=== PATIENT | female | born 1930 | race Caucasian/White ===

== ENCOUNTER 2022-05-15 18:22 | Inpatient (IN) | payer OTHER ==
[~2022-05-15] VITALS: Ht 157.5 cm; Wt 59.0 kg
--- NOTE | 2022-05-15 18:25 | NUR ---
JOAN ALS TO ER BED 4
[2022-05-15 18:32] VITALS: BP 113/78
[2022-05-15] MEDS ORDERED: IPRATROPIUM 0.02% 0.5 MG/2.5 ML NEBU INH ONE (18:35)
[2022-05-15] MEDS ORDERED: ALBUTEROL 0.083% 2.5 MG/3 ML NEBU INH ONE ×2 (18:35→20:45)
[2022-05-15] MEDS ORDERED: methylPREDNISolone SS 125 MG/2 ML VIAL IVP ONE (18:35)
[2022-05-15 19:07] LABS: BASOPHILS % (AUTO) 0.4 % (0.0-2.0); EOSINOPHILS % (AUTO) 0.1 % (0.0-4.0); HEMOGLOBIN 8.7 g/dL (12.0-16.0); LYMPHOCYTES # (AUTO) 0.7 K/uL (2.5-16.5); LYMPHOCYTES % (AUTO) 15.4 % (20.5-51.1); MEAN CORPUSCULAR HEMOGLOBIN 38 pg (27-31); MEAN CORPUSCULAR HGB CONC 34 g/dL (33-37); MEAN CORPUSCULAR VOLUME 112.8 fL (80-94); MONOCYTES # (AUTO) 0.5 K/uL (0.8-1.0); MONOCYTES % (AUTO) 12.5 % (1.7-9.3); NEUTROPHILS # (AUTO) 3.1 K/uL (1.8-7.7); NEUTROPHILS % (AUTO) 71.6 % (42.2-75.2); PLATELET COUNT (AUTO) 442 K/uL (140-450); RED BLOOD CELL COUNT(AUTO) 2.31 MIL/uL (4.20-5.40); RED CELL DISTRIBUTION WIDTH 16.6 % (11.6-13.7); WHITE BLOOD COUNT (AUTO) 4.4 K/uL (4.8-10.8)
[2022-05-15 19:21] LABS: ALBUMIN 3.2 g/dL (3.4-5.0); ANION GAP 5.1 (8-16); ASPARTATE AMINOTRANSFERASE 26 U/L (15-37); CHLORIDE 98 mmol/L (98-107); CREATININE 0.7 mg/dL (0.6-1.3); GLUCOSE 110 mg/dL (74-106); POTASSIUM 4.9 mmol/L (3.5-5.1); SODIUM SERUM 140 mmol/L (136-145); TOTAL BILIRUBIN 0.3 mg/dL (0.0-1.0); UREA NITROGEN, BLOOD 28 mg/dL (7-18)
[2022-05-15 19:24] LABS: CARBON DIOXIDE 41.8 mmol/L (21-32)
--- NOTE | 2022-05-15 19:25 | NUR ---
Note per in ED - 05/15/22 at 1933 by [id number] Patient resting in bed A/Ox4, chest rise and fall symmetrical, no c/o pain or s/s of distress.
--- NOTE | 2022-05-15 19:26 | NUR ---
Patient resting in bed A/Ox2, chest rise and fall symmetrical, no c/o pain or s/s of distress
[2022-05-15] MEDS ORDERED: FUROSEMIDE 20 MG/2 ML VIAL IVP ONE (20:05)
[2022-05-15] MEDS ORDERED: cefTRIAXone 1,000 MG VIAL ONE (20:55)
--- NOTE | 2022-05-15 21:00 | NUR ---
Patient's son stated patient "has no known allergies."
--- NOTE | 2022-05-15 21:41 | NUR ---
Patient resting in bed A/Ox2, chest rise and fall symmetrical, no c/o pain or s/s of distress
--- NOTE | 2022-05-15 23:00 | NUR ---
Patient resting in bed A/Ox2, chest rise and fall symmetrical, no c/o pain or s/s of distress
[2022-05-15 23:04] VITALS: BP 132/55
--- NOTE | 2022-05-15 23:28 | NUR ---
2200 PATIENTS TIDAL VOLUMES WERE LOW ON BIPAP. INCREASED IPAP TO 12 AND I TIME TO .90 PTS VT IMPROVED
--- NOTE | 2022-05-15 23:31 | NUR ---
2044 PLACED PT ON BIPAP DUE TO HIGH CO2. IPAP 10 EPAP 5 AND RR 16. FIO2 30% SIZE MEDIUM MASK
[2022-05-15] MEDS ORDERED: SYN.05 PO (23:34)
[2022-05-15] MEDS ORDERED: FURO-572 PO (23:34)
--- NOTE | 2022-05-16 00:12 | NUR ---
Patient will be admitted to care of Dr Estes. Admited to telemetry. Will go to room 121A. Belongings list completed. Report to Dinorah CONTRERAS. Dinorah CONTRERAS verbalized understanding of report, no further questions.
--- NOTE | 2022-05-16 00:12 | NUR ---
Patient resting in bed A/Ox2, chest rise and fall symmetrical, no c/o pain or s/s of distress
--- NOTE | 2022-05-16 00:25 | NUR ---
RECEIVED PT ADMISSION FROM ER TO [facility]. ADMITTED WITH CHIEF COMPLAINT OF DIFFICULTY OF BREATHING AND DIAGNOSIS OF COPD EXACERBATION. PT WITH HISTORY OF DEMENTIA, COPD, DYSPHAGIA, HTN, HYPOTHYROIDISM AND A-FIB. PT IS BED REST, NO ALLERGY AND IS DNR. PT IS ALERT AND ORIENTED X1-2, PT NOTED TIRED AND SLEEPY, DOES NOT RESPONDS ON STIMULI. PT ADMITTED WITH RENAL DIET. PT IS INCONTINENT. IV SITE IS ON LEFT AC 24G, INTACT AND PATENT. SACRAL WOUND (DRY WOUND) PRESENT ON SACRAL AREA. PT CAME IN WITH BIPAP.
--- NOTE | 2022-05-16 00:37 | NUR ---
0015 TRANSFERRED SAME SETTING PT TO ROOM 121 A ON BIPAP SAME SETTINGS
--- NOTE | 2022-05-16 02:35 | NUR ---
PT AWAKE OPEN EYES AND SMILE, ATTEMPT TO REMOVE HER CLOTHING BUT FEW MINUTES AFTER BACK TO SLEEP.
[2022-05-16 04:00] VITALS: BP 108/52
--- NOTE | 2022-05-16 04:00 | NUR ---
PT IS ASLEEP WITH BIPAP ON.
--- NOTE | 2022-05-16 05:30 | NUR ---
PT IS AWAKE AND ASKED ABOUT BIPAP THAT SHE IS USING.
[2022-05-16 07:11] LABS: CARBON DIOXIDE 40.4 mmol/L (21-32); CHLORIDE 97 mmol/L (98-107); CREATININE 0.8 mg/dL (0.6-1.3); GLUCOSE 128 mg/dL (74-106); POTASSIUM 4.4 mmol/L (3.5-5.1); UREA NITROGEN, BLOOD 26 mg/dL (7-18)
[2022-05-16 07:55] LABS: SODIUM SERUM 141 mmol/L (136-145)
[2022-05-16 08:00] VITALS: BP 122/53
--- NOTE | 2022-05-16 08:14 | NUR ---
0735: RECEIVED PT FROM LIS CONTRERAS. PT RESTING IN BED AWAKE. NO C/O PAIN OR SOB. NO ACUTE DISTRESS NOTED AT THIS TIME. [id number].
--- NOTE | 2022-05-16 08:16 | NUR ---
0735: PREVIOUS ENTRY ON WRONG PT. PT RESTING IN BED ON BI-PAP. NO GUARDING OR GRIMACING . NO ACUTE DISTRESS NOTED AT THIS TIME. [id number].
[2022-05-16 08:55] LABS: BASOPHILS % (AUTO) 0.2 % (0.0-2.0); HEMATOCRIT 26.8 % (36-48); HEMOGLOBIN 8.6 g/dL (12.0-16.0); LYMPHOCYTES # (AUTO) 0.3 K/uL (2.5-16.5); LYMPHOCYTES % (AUTO) 8.4 % (20.5-51.1); MEAN CORPUSCULAR HEMOGLOBIN 36 pg (27-31); MEAN CORPUSCULAR HGB CONC 32 g/dL (33-37); MEAN CORPUSCULAR VOLUME 113.4 fL (80-94); MONOCYTES # (AUTO) 0.2 K/uL (0.8-1.0); MONOCYTES % (AUTO) 4.5 % (1.7-9.3); NEUTROPHILS # (AUTO) 3.4 K/uL (1.8-7.7); NEUTROPHILS % (AUTO) 86.9 % (42.2-75.2); PLATELET COUNT (AUTO) 411 K/uL (140-450); RED BLOOD CELL COUNT(AUTO) 2.36 MIL/uL (4.20-5.40); RED CELL DISTRIBUTION WIDTH 16.4 % (11.6-13.7); WHITE BLOOD COUNT (AUTO) 3.9 K/uL (4.8-10.8)
--- NOTE | 2022-05-16 09:20 | NUR ---
PATIENT HAS BEEN SCREENED AND CATEGORIZED HIGH NUTRITION RISK. PATIENT WILL BE SEEN WITHIN 1-2 DAYS OF ADMISSION. FNS CONSULT RECEIVED FOR SAY 12 OR LOWER ON 05/16/22. REVIEWED BY MEMO BARBA RD
--- NOTE | 2022-05-16 10:00 | NUR ---
Dr Flores rounded on pt gave verbal order for abg. To see if pt can come off bipap. Will continue to monitor.
--- NOTE | 2022-05-16 10:25 | NUR ---
ABG RESULTS GIVEN TO DR REED. WANTS TO KEEP PT ON BIPAP TODAY AND NIGHT FOLLOWED BY AN ABG 4/12 AM. FAMILY AT BEDSIDE WAS INFORMED OF PLAN OF CARE MOVING FORWARD. BREATHING TX WERE ALSO ORDERED FROM BRIANNA. [id number] +Q2 PRN SOB. WILL CONTINUE TO MONITOR. RN AWARE OF ORDERS AND PLAN OF CARE.
[2022-05-16] MEDS ORDERED: ALBUTEROL SULFATE/IPRATROPIU 3 ML SOL IH PRN (10:40)
[2022-05-16] MEDS: FUROSEMIDE 20 MG/2 ML VIAL IVP SCH ×2 (10:40→16:30)
--- NOTE | 2022-05-16 11:30 | NUR ---
DC PLANNING ASSESSMENT COMPLETE PLEASE REFER TO ASSESSMENT FOR ADDITIONAL DETAILS DELANO REQUESTING AN ALTERNATIVE SNF BE FOUND HE CURRENTLY IS UNHAPPY WITH LEVEL OF CARE PT IS RECEIVING AT [facility]. PT REQUESTING REFERRAL PACKET BE SENT TO [facility]. SPOKE TO DELANO ABOUT HOW PLACEMENT IS TYPICALLY ARRANGED AND THE COMPLEXITIES OF PLACEMENT, HOWEVER, NOTIFIED DELANO THAT SW WOULD ENDORSE TO CM. DELANO ACKNOWLEDGED AND IS AWARE OF BARRIERS. SW ENDORSED TO CM. Addendum: 05/17/22 at 0909 by Rubina FELIX Amended: Links added.
[2022-05-16 12:00] VITALS: BP 95/62
[2022-05-16] MEDS: methylPREDNISolone SS 40 MG/ML VIAL IVP SCH ×2 (13:00→21:39)
--- NOTE | 2022-05-16 13:25 | NUR ---
RT RECEIVED A CALL FROM RN PT WAS TAKING HER BIPAP OFF AND AGITATED. RT GOT AN ABG AND CALL DR REED WITH RESULTS. KACY STATED PT IS OK TO BE OFF BIPAP AND TO PLACE HER BACK ON FOR NOC. NO DISTRESS NOTED FROM PT. WILL CONTINUE TO MONITOR. PT IS ON 2L NC SATING 98% HR 73.
[2022-05-16] MEDS: ALBUTEROL SULFATE/IPRATROPIU 3 ML SOL IH SCH ×4 (14:31→23:00)
--- NOTE | 2022-05-16 15:29 | NUR ---
DC PLANNING 89 YRS OLD FEMALE PATIENT WAS ADMITTED FROM [facility] WITH A DX OF COPD EXACERBATION . PATIENT HAS A HX OF DEMENTIA, COPD, A-FIB, HYPOTHYROIDISM AND DYSPHAGIA. CXR SHOWED RT PLEURAL INFUSION. RAPID COVID TEST NEGATIVE. ADMINISTERED IV LASIX AND CONTINUED HOME MEDS. CONSULTED WITH PULCHANTAL. DC PLAN TO RETURN TO [facility]. CM TO FOLLOW Addendum: 05/17/22 at 1710 by Roxana Gómez RN DC PLANNING: SEEN BY TIMBO SANDHU ORDERED TO CONTINUE LASIX IV FOR FLUID OVERLOAD . REVIEWED CT SCAN NONSPECIFIC FINDINGS. SPOKE WITH SON AND SON WANTS TO CONSIDER HOSPICE. CM TO FOLLOW
[2022-05-16 16:00] VITALS: BP 110/84
--- NOTE | 2022-05-16 16:41 | NUR ---
05/16/22 RD INITIAL ASSESSMENT COMPLETED PLEASE REFER TO NUTRITION ASSESSMENT UNDER CARE ACTIVITY FOR ESTIMATED NUTRITIONAL NEEDS. 1. RECOMMEND RENAL, MECHANICAL SOFT DIET TOLERATED 2. RECOMMENDED ENSURE 1/DAY FOR WOUND HEALING -PROVIDES 350 KCAL AND [address] TO FOLLOW-UP 3-5 DAYS, MODERATE RISK REVIEWED BY MEMO BARBA RD
--- NOTE | 2022-05-16 17:45 | NUR ---
CHECKED ON PT SHE IS AWAKE AND ALERT WITH SON AT BEDSIDE. NO DISTRESS NOTED. HR 67 SPO2 95% ON 2L NC. EXPLAINED TO SON THAT TO NIGHT WE WILL TRY TO PLACE BIPAP ON AT NIGHT TONIGHT IF HE CAN ENCOURAGE HER TO WEAR IT. SON AGREED AND WILL TALK TO PT BEFORE HE LEAVES.
--- NOTE | 2022-05-16 19:07 | NUR ---
0800: RECEIVED PT FROM TIANA CONTRERAS. PT RESTING IN BED. NO GUARDING OR GRIMACING. NO ACUTE DISTRESS NOTED AT THIS TIME. MNURMV2.
--- NOTE | 2022-05-16 19:30 | NUR ---
RECEIVED REPORT FROM DAY SHIFT NURSE SENIA FOR CONTINUITY OF CARE. PATIENT IS A&O X3. PATIENT IS ON 2L NC, BREATHING IS NORMAL WITH SYMMETRICAL RISE AND FALL OF CHEST. IV IS A 24G LFA, AND A 20G IN THE R WRIST; NO FLUIDS RUNNING AT THIS TIME (SALINE LOCKED). PATIENT ALSO HAS A 20G LAC THAT BECAME INFILTRATED EARLIER IN THE DAY. PATIENT IS SITTING IN SEMI-FOWLERS POSITION, RECEIVING A BREATHING TREATMENT FROM RESPIRATORY THERAPY. FAMILY MEMBER IS AT PATIENT'S SIDE. BED IS IN LOWEST POSITION, WHEELS LOCKED CALL LIGHT IN PLACE. WILL CONTINUE TO OBSERVE PATIENT.
--- NOTE | 2022-05-16 19:32 | NUR ---
193: REPORTED OFF TO CUONG CONTRERAS. PT RESTING IN BED, VISITING WITH FAMILY. NO C/O PAIN OR SOB. NO ACUTE DISTRESS NOTED AT THIS TIME. MNURMV2.
[2022-05-16 20:00] VITALS: BP 110/50
--- NOTE | 2022-05-16 21:09 | NUR ---
RT NOTES TRIED TO PLACE PT ON BIPAP BEFORE DAUGHTER LEFT FOR THE NIGHT BUT PT REFUSED AND DIDNT WANT IT ON. NO DISTRESS WAS NOTED FROM THE PT. EXPLAINED TO THE DAUGHTER I CANT MAKE PT WEAR IT BUT WE CAN TRY LATER WHEN SHE GETS TIRED. DAUGHTER UNDERSTANDS. WILL CONTINUE TO MONITOR PT
[2022-05-17] VITALS: BP 108/47
[2022-05-17] MEDS: ALBUTEROL SULFATE/IPRATROPIU 3 ML SOL IH SCH ×6 (03:00→23:46)
[2022-05-17 04:00] VITALS: BP 100/46
[2022-05-17] MEDS: methylPREDNISolone SS 40 MG/ML VIAL IVP SCH ×3 (04:37→20:23)
[2022-05-17] MEDS: LEVOTHYROXINE 0.05 MG TAB PO SCH (07:06)
--- NOTE | 2022-05-17 07:08 | NUR ---
PATIENT SLEPT THROUGHOUT THE NIGHT. PATIENT WAS CHANGED WITH THE ASSISTANCE OF JENIFFER CROCKER. NEW BANDAGE WAS APPLIED TO COCCYX. PHOTO WAS TAKEN OF LEFT HIP CLAUDIA AND BRUISE ON LEFT INNER THIGH. 0630 PO MEDICATION ADMINISTERED WITHOUT ANY DIFFICULTY OF SWALLOWING. WILL ENDORSE CARE TO DAY SHIFT.
[2022-05-17] MEDS: FUROSEMIDE 20 MG/2 ML VIAL IVP SCH ×2 (07:30→16:29)
--- NOTE | 2022-05-17 07:35 | NUR ---
ENDORSED TO DAY SHIFT NURSE SYLVIA FOR CONTINUITY OF CARE. PATIENT IS STABLE.
--- NOTE | 2022-05-17 07:36 | NUR ---
RECEIVED REPORT FROM ACID CONDITIONING WORKER. PT IN BED WITH HOB ELEVATED. AOX2, ORIENTED TO SELF AND PLACE. VERBAL, VIETNAMESE SPEAKING. NO C/O PAIN, NO SOB ON 2L O2. WITH PERIPHERAL IVs SALINE LOCKED.
[2022-05-17 08:00] VITALS: BP 125/67
[2022-05-17] MEDS ORDERED: FUROSEMIDE 20 MG TAB PO SCH (09:00)
--- NOTE | 2022-05-17 11:00 | NUR ---
SHMUEL CARE DONE. TURNED AND REPOSITIONED
[2022-05-17 12:00] VITALS: BP 111/71
--- NOTE | 2022-05-17 13:53 | NUR ---
WOUND CARE NOTE: PT IS AWAKE ,CONFUSE, WITH O2 NC, NO SOB. PT IS INCONTINENT OF BLADDER, NO BM.PT. ADMITTED WITH SACRALCOCCYX PRESSURE INJURY STAGE 3 2X3X0.2CM WOUND BED 100% RED GRANULATION TISSUE, MOIST, NO ODOR, SHMUEL-WOUND SKIN PEELING WITH NON-BLANCHABLE REDNESS,ENTIRE AFFECTED AREA 4X4CM FURTHER DAMAGE INDICATED. LEFT HIP ORIF ON APRIL, WOUND SITE DRY, CLEAN. PT. WITH LOW SAY SCALE AT HIGH RISK, CONTINUE TO FOLLOW PRESSURE INJURY PREVENTION INTERVENTIONS. POC DISCUSSED WITH PRIMARY RN SYLVIA. RECOMMENDATIONS: -REMOVE LEFT CLAUDIA, AREA HEALED. -APPLY TO ALL LIMBS, TRUNK OF BODY , PERINEUM BID AND RESIN COATER -CLEAN WITH NS, PAT DRY, APPLY THERAHONEY GEL TO SACRALCOCCYX WOUND BED AND COVER WITH DRY DRESSING QD AND PRN IF SOILING -POSITIONING: TURN AND REPOSITION PATIENT Q 2H OR SOONER USE PILLOWS TO KEEP BONY PROMINENCES FROM DIRECT CONTACT WITH SURFACES USE REPOSITIONING WEDGES TO PROVIDE 30-DEGREE ANGLE FOR SIDE LYING POSITIONS OFFLOADING OR FOAM DRESSING TO ALL TUBING TO PREVENT MEDICAL DEVICES RELATED PRESSURE INJURY -RE-EVALUATING AND MANAGING INCONTINENCE MONITOR SKIN CONDITION DURING POSITION CHANGE DO NOT MASSAGE REDNESS, BONY PROMINENCES FREQUENT SHMUEL-CARE AND PROVIDE BARRIER CREAMS PRN IF SOILING MOISTURE CONTROL BY OFFER BED WATTS/URINAL /ABSORBENT PAD TO WICK AND HOLD MOISTURE KEEP SKIN DRY AND PROTECT FROM FRICTION -MANAGE FRICTION/SHEAR/MOBILITY KEEP HOB AT THE LOWEST LEVEL OF ELEVATION NO MORE THAN 30 DEGREE UNLESS OTHERWISE CONTRAINDICATED USE LIFT SHEET OR TRANSFER DEVICE TO MOVE PATIENT AND PREVENT LATERAL SHEER. PROTECT HEELS, ELBOWS BONY PROMINENCES WITH SKIN BERRIES OR FOAM DRESSING IF EXPOSED TO FRICTION OFFLOAD BILATERAL HEELS BY PLACING PILLOWS UNDER CALVES AT ALL TIMES, UNLESS OTHERWISE CONTRAINDICATED -PRESSURE REDISTRIBUTION SURFACE THERAPY CECILY ISOFLEX MATTRESS -NUTRITION: PLEASE FOLLOW RD RECOMMENDATIONS AND OFFER NUTRITION SUPPLEMENTS IF ORDERED. PLEASE CONTACT WOUND CARE NURSE FOR ANY QUESTION AND CHANGE OF WOUND CONDITION.
--- NOTE | 2022-05-17 15:50 | NUR ---
LEFT HIP CLAUDIA REMOVED ORDERED. FABIOONEY APPLIED TO LEFT BUTTOCK WOUND
[2022-05-17 16:00] VITALS: BP 121/58
[2022-05-17] MEDS: THERAHONEY GEL 42.5 GM TP SCH (16:29)
--- NOTE | 2022-05-17 19:30 | NUR ---
RECEIVED REPORT FROM DAY SHIFT NURSE SYLVIA FOR CONTINUITY OF CARE. PATIENT IS A&O X1-2, CONFUSED. PATIENT IS ON 3L NC, BREATHING IS NORMAL WITH SYMMETRICAL RISE AND FALL OF CHEST. IV IS A 24G LFA, AND A 20G IN THE R WRIST; NO FLUIDS RUNNING AT THIS TIME (SALINE LOCKED). PATIENT IS SITTING IN SEMI-FOWLERS POSITION, RECEIVING A BREATHING TREATMENT FROM RESPIRATORY THERAPY. FAMILY MEMBER IS AT PATIENT'S SIDE. BED IS IN LOWEST POSITION, WHEELS LOCKED CALL LIGHT IN PLACE. WILL CONTINUE TO OBSERVE PATIENT.
[2022-05-17 20:00] VITALS: BP 109/49
--- NOTE | 2022-05-17 22:04 | NUR ---
PATIENT HAD VOIDED WITH NO BM. PATIENT WAS CLEANED AND CHANGED. NEW COVERS WERE PLACED ON PATIENT. PATIENT IS VERY CONFUSED. WILL CONTINUE TO OBSERVE PATIENT.
[2022-05-18] VITALS: BP 121/55
[2022-05-18] MEDS: HYDRAGUARD CREAM TP SCH ×2 (01:37→13:00)
[2022-05-18] MEDS: ALBUTEROL SULFATE/IPRATROPIU 3 ML SOL IH SCH ×6 (03:37→19:23)
[2022-05-18 04:00] VITALS: BP 153/77
[2022-05-18] MEDS: methylPREDNISolone SS 40 MG/ML VIAL IVP SCH ×2 (05:55→14:00)
[2022-05-18] MEDS: LEVOTHYROXINE 0.05 MG TAB PO SCH (05:55)
--- NOTE | 2022-05-18 06:11 | NUR ---
PATIENT SLEPT THROUGHOUT MOST OF THE NIGHT. PATIENT HAD A BREATHING TREATMENT AT 0337. AT 0400 PATIENT WAS FOUND ON THE FLOOR NEXT TO HER BED. PATIENT WAS CONFUSED ASKING WHERE SHE WAS. ASSESSED PATIENT; PATIENT DID NOT APPEAR TO HAVE ANY NEW WOUNDS. ASSISTED PATIENT BACK TO BED WITH THE ASSISTANCE OF DIANE GARIBAY AND DIANE MOURA. PATIENT WAS PLACED BACK INTO BED AND COVERED BACK UP. ASKED PATIENT WHAT HAPPENED; PATIENT RESPONDED SAYING I DON'T KNOW WHAT HAPPENED. PATIENT IS VERY CONFUSED. UNABLE TO SET BED ALARM ON PATIENT'S BED; BED KEEPS STATING "TOO LITTLE WEIGHT". SITTING OUTSIDE PATIENT'S ROOM. PATIENT IS SLEEPING. MD WAS NOTIFIED AROUND 0450; FAMILY MEMBER [DANN ARELLANO (DAUGHTER)] WAS NOTIFIED AT 0610. EXPLAINED TO DAUGHTER THAT PATIENT WAS FOUND ON FLOOR NEXT TO BED AND APPEARED CONFUSED. ALSO EXPLAINED THAT PATIENT DID NOT APPEAR TO HAVE ANY VISIBLE NEW WOUNDS AND ONCE SHE WAS BACK IN BED, STARTED TO GO BACK TO SLEEP. DAUGHTER SAID OKAY, AND THANKED ME FOR CALLING HER. STILL PENDING MD RESPONSE.
--- NOTE | 2022-05-18 06:27 | NUR ---
DR. SIMPSON MESSAGED AT [address] W/O CONTRAST; AND X-RAY OF BILATERAL HIP AND KNEE. PLACED ORDER INTO SYSTEM. PATIENT IS LYING IN BED SLEEPING.
--- NOTE | 2022-05-18 06:59 | NUR ---
PATIENT TAKEN BY ARLEN FROM RADIOLOGY AT [address] SCAN OF HEAD W/O CONTRAST AND BILATERAL X-RAY OF HIP AND KNEE. WILL ENDORSE TO DAY SHIFT NURSE OF PATIENT BEING OFF UNIT.
--- NOTE | 2022-05-18 07:39 | NUR ---
PATIENT ARRIVED BACK TO UNIT AT 0730 FROM RADIOLOGY. WAS ENDORSING PATIENT TO DAY SHIFT NURSE ADZE AT TIME OF PATIENT'S RETURN. INFORMED DAY SHIFT NURSE THAT LASIX 0730 NOT ADMINISTERED. DAY SHIFT NURSE STATED NOT TO WORRY ABOUT IT, SHE WOULD TAKE CARE OF IT.
--- NOTE | 2022-05-18 07:40 | NUR ---
ENDORSED TO DAY SHIFT NURSE ADZE FOR CONTINUITY OF CARE. PATIENT IS STABLE.
[2022-05-18 08:00] VITALS: BP 145/47
--- NOTE | 2022-05-18 08:00 | NUR ---
patient came back from radiology. asleep, easily awakened to verbal stimuli. not in any form of distress. shift assessment done and documented. will continue to monitor.
[2022-05-18] MEDS: FUROSEMIDE 20 MG/2 ML VIAL IVP SCH ×2 (08:30→16:30)
--- NOTE | 2022-05-18 11:30 | NUR ---
PT IS STILL SLEEPING RN STATED PT DID NOT GET GOOD SLEEP LQST NIGHT DUE TO HER FALL AND COMING BACK FORM CT. PT FIRST TX WAS HELD WELL. NO DISTRESS NOTE SON IS AT BEDSIDE AND AGREES TO LET PT SLEEP. WILL CONTINUE TO MONITOR.
[2022-05-18 12:00] VITALS: BP 145/47
--- NOTE | 2022-05-18 12:30 | NUR ---
PHYSICAL THERAPY NOTE: ATTEMPTED TO SEE PATIENT FOR PHYSICAL THERAPY EVALUATION HOWEVER PATIENT HAS CONFIRMED NONDISPLACED FX ALONG LEFT INFERIOR LESSER TROCHANTER OF 05/18 11:30AM; REQUIRE ORTHO CLEARANCE AND WB STATUS TO PROCEED WITH OOB ACTIVITY. FALL INTERNSHIP AND RN AWARE. Addendum: 05/18/22 at 1307 by Lizzette Gallego PT HOLD EVALUATION UNTIL CLEARED BY ORTHO. WILL FOLLOW UP TOMORROW
--- NOTE | 2022-05-18 12:57 | NUR ---
RECEIVED [facility] FOR [facility] , AND SPOKE WITH JEFF WHO INFORMED ME PATIENT WAS ACCEPTED AND A NURSE WILL BE OUT BEFORE 1400 TO EVALUATE THE PT WHILE SON IS PRESENT AND THEY WILL GO FROM THE Addendum: 05/18/22 at 1604 by Roxana Gómez RN DC PLANNING: CM SPOKE WITH PT'S SON TONNY STATED HE DISCUSSED WITH PT'S PCP AND RECOMMENDED HOSPICE AND [facility] CONTRACTED WITH PCP. CM CONTACTED [facility] SPOKE WITH JEFF STATED WILL SEND THE NURSE AND THE PLAN IS TO GO BACK TO [facility] WITH HOSPICE TOMORROW 05/17/22. CM TO FOLLOW
[2022-05-18] MEDS: THERAHONEY GEL 42.5 GM TP SCH (13:00)
--- NOTE | 2022-05-18 14:10 | NUR ---
son at bedside. called Dr. Jasso and notified that patient family is at bedside and that MD needs to notify family regarding x-ray results. per Dr. Jasso he will speak with the family today or tomorrow. patient is resting comfortably in bed with no distress noted.
[2022-05-18 16:00] VITALS: BP 129/65
--- NOTE | 2022-05-18 19:30 | NUR ---
RECEIVED REPORT FROM DAY SHIFT RN FOR CONTINUITY OF CARE. PT IS CURRENTLY RESTING IN BED. PT NOT IN ANY DISTRESS. PT IS ON NS 3L SATING 99%. BED AT THE LOWEST POSITION. HEAD OF THE BED RAISED. SAFETY PRECAUTIONS TAKEN. WILL CONTINUE TO MONITOR THE PT.
[2022-05-18 20:00] VITALS: BP 159/92
[2022-05-19] VITALS: BP 105/67
[2022-05-19] MEDS: ALBUTEROL SULFATE/IPRATROPIU 3 ML SOL IH SCH (00:27)
--- NOTE | 2022-05-19 01:00 | NUR ---
CHECKED ON PT. PT IS SLEEPING IN BED NOT IN ANY DISTRESS. BREATHING EVEN AND UNLABORED. SAFETY MEASURES TAKEN. WILL CONTINUE TO MONITOR THE PT.
[2022-05-19] MEDS: HYDRAGUARD CREAM TP SCH (01:03)
[2022-05-19 04:00] VITALS: BP 97/63
--- NOTE | 2022-05-19 04:35 | NUR ---
PT WAS CLEANED AND CHANGED. TOLERATED IT WE. SAFETY PRECAUTIONS TAKEN. WILL CONTINUE TO MONITOR THE PT.
[2022-05-19] MEDS: LEVOTHYROXINE 0.05 MG TAB PO SCH (06:53)
[2022-05-19] MEDS: FUROSEMIDE 20 MG/2 ML VIAL IVP SCH (06:53)
--- NOTE | 2022-05-19 07:17 | NUR ---
ENDORSED PT TO DAY SHIFT RN FOR CONTINUITY OF CARE. PT IS STABLE.
[2022-05-19] MEDS ORDERED: methylPREDNISolone SS 40 MG/ML VIAL IVP SCH (09:00)
== END 2022-05-19 13:33 | disposition hospice, home (50) | DRG 871 ==
LOC: MED 18:22 → MTU 21:07
PROC: 5A09357 Assistance with Respiratory Ventilation, Less than 24 Consecutive Hours, Continuous Positive Airway Pressure (ICD-10-PCS; principal; 2022-05-15)
PROC: 5A09357 Assistance with Respiratory Ventilation, Less than 24 Consecutive Hours, Continuous Positive Airway Pressure (ICD-10-PCS; 2022-05-17)
DX: A41.9 Sepsis, unspecified organism (principal); J69.0 Pneumonitis due to inhalation of food and vomit; J96.21 Acute and chronic respiratory failure with hypoxia; S72.125A Nondisplaced fracture of lesser trochanter of left femur, initial encounter for closed fracture; J96.22 Acute and chronic respiratory failure with hypercapnia; J44.1 Chronic obstructive pulmonary disease with (acute) exacerbation; J44.0 Chronic obstructive pulmonary disease with (acute) lower respiratory infection; F03.90 Unspecified dementia, unspecified severity, without behavioral disturbance, psychotic disturbance, mood disturbance, and anxiety; R13.10 Dysphagia, unspecified; E03.9 Hypothyroidism, unspecified; I48.91 Unspecified atrial fibrillation; M16.12 Unilateral primary osteoarthritis, left hip; D53.9 Nutritional anemia, unspecified; M85.80 Other specified disorders of bone density and structure, unspecified site; J32.0 Chronic maxillary sinusitis; I11.0 Hypertensive heart disease with heart failure; I50.9 Heart failure, unspecified; M41.9 Scoliosis, unspecified; Z20.822 Contact with and (suspected) exposure to COVID-19; Z66 Do not resuscitate; X58.XXXA Exposure to other specified factors, initial encounter; Z79.01 Long term (current) use of anticoagulants; Y93.89 Activity, other specified; Y92.89 Other specified places as the place of occurrence of the external cause; Y99.8 Other external cause status
CPT/HCPCS: 36415; 36600; 70450; 71045; 71275; 73560; 80048; 80053; 82550; 82803; 82948; 83605; 83880; 84484; 85025; 87040; 87081; 94640; 94660; 96365; 96375; 99285; J0696; J1940; J2920; J2930; J7613; J7644; Q0092; Q9967